=== PATIENT | female | born 1985 | race American Indian/Alaskan Native ===

== ENCOUNTER 2018-06-04 17:34 | Observation (INO) | payer MEDICAID, OTHER ==
[2018-06-04 18:24] LABS: Basophils # (Auto) 0.1 K/mm3 (0.0-0.1); Basophils % (Auto) 0.5 % (0.0-1.8); Eosinophils # (Auto) 0.1 K/mm3 (0.0-0.4); Eosinophils % (Auto) 0.6 % (0.0-4.3); Hematocrit 30.9 % (30.3-42.9); Hemoglobin 10.9 gm/dl (10.1-14.3); Lymphocytes # (Auto) 2.7 K/mm3 (1.2-5.4); Lymphocytes % (Auto) 24.2 % (13.4-35.0); Mean Corpuscular HGB Conc 35 % (30-34); Mean Corpuscular Hemoglobin 30 pg (28-32); Mean Corpuscular Volume 83 fl (79-97); Monocytes # (Auto) 0.5 K/mm3 (0.0-0.8); Monocytes % (Auto) 4.7 % (0.0-7.3); Platelet Count 323 K/mm3 (140-440); Red Cell Distribution Width 14.9 % (13.2-15.2)
[2018-06-04 18:55] LABS: Alanine Aminotransferase 26 units/L (7-56); Albumin 3.7 g/dL (3.9-5); BUN/Creatinine Ratio 28; Blood Urea Nitrogen 11 mg/dL (7-17); Calcium 9.3 mg/dL (8.4-10.2); Hemolysis Index 0
--- NOTE | 2018-06-04 23:39 | Emergency Department Report ---
ED General Adult HPI - General Chief complaint: Dizziness Stated complaint: SHORTNESS OF BREATH/DIZZINESS Time Seen by Provider: 06/04/18 21:38 Source: patient Mode of arrival: Ambulatory Limitations: No Limitations - History of Present Illness Initial comments: 2-3 months of progressive onset exertional dyspnea, difficulty breathing when she lies flat, and sometimes waking up in the middle night with difficulty breathing. The patient went to her OB, which referred her to a professional development director. She saw [facility] earlier today and was referred to the ER due to a systolic blood pressure in the 90s. Patient has no history of heart problems. She is currently 19 weeks . This is her third . The first 2 pregnancies were uneventful. No recent trips or surgeries. Denies abdominal pain or dysuria. - Related Data Previous Rx's Medication Instructions Recorded Last Taken Type Ibuprofen [Motrin] 800 mg PO Q8HR PRN #60 tablet 11/09/15 Unknown Rx Ondansetron [Zofran Odt] 4 mg PO Q6H #14 tab.rapdis 11/09/15 Unknown Rx traMADol [Ultram] 50 mg PO Q6HR PRN #14 tablet 11/09/15 Unknown Rx Allergies Allergy/AdvReac Type Severity Reaction Status Date / Time No Known Allergies Allergy Verified 06/04/18 17:44 ED Review of Systems ROS: Stated complaint: SHORTNESS OF BREATH/DIZZINESS Other details as noted in HPI Comment: All other systems reviewed and negative Respiratory: orthopnea, SOB with exertion ED Past Medical Hx - Past Medical History Previous Medical History?: No - Surgical History Past Surgical History?: Yes Additional Surgical History: c section - Social History Smoking Status: Never Smoker Substance Use Type: None - Medications Home Medications: Home Medications Medication Instructions Recorded Confirmed Last Taken Type Ibuprofen [Motrin] 800 mg PO Q8HR PRN #60 tablet 11/09/15 Unknown Rx Ondansetron [Zofran Odt] 4 mg PO Q6H #14 tab.rapdis 11/09/15 Unknown Rx traMADol [Ultram] 50 mg PO Q6HR PRN #14 tablet 11/09/15 Unknown Rx ED Physical Exam - General Limitations: No Limitations General appearance: alert, in no apparent distress - Head Head exam: Present: atraumatic, normocephalic - Eye Eye exam: Present: normal appearance - ENT ENT exam: Present: mucous membranes moist - Neck Neck exam: Present: normal inspection - Respiratory Respiratory exam: Present: normal lung sounds bilaterally. Absent: respiratory distress - Cardiovascular Cardiovascular Exam: Present: regular rate, normal rhythm, JVD. Absent: systolic murmur, diastolic murmur, rubs, gallop - GI/Abdominal GI/Abdominal exam: Present: soft, normal bowel sounds, other (gravid abdomen). Absent: tenderness - Extremities Exam Extremities exam: Present: normal inspection, pedal edema (trace bilateral pedal edema) - Back Exam Back exam: Present: normal inspection - Neurological Exam Neurological exam: Present: alert, oriented X3 - Psychiatric Psychiatric exam: Present: normal affect, normal mood - Skin Skin exam: Present: warm, dry, intact, normal color. Absent: rash ED Course Vital Signs 06/04/18 06/04/18 06/05/18 17:45 23:51 01:29 Temperature 97.8 F 98.6 F 98.6 F Pulse Rate 100 H 90 98 H Respiratory 16 18 19 Rate Blood Pressure 120/60 Blood Pressure 110/62 103/55 [Left] O2 Sat by Pulse 97 100 100 Oximetry ED Medical Decision Making - Lab Data Result diagrams: 06/04/18 18:04 06/04/18 18:04 - EKG Data -: EKG Interpreted by Me EKG shows normal: sinus rhythm, axis, intervals, QRS complexes, ST-T waves Rate: normal - EKG Data Interpretation: no acute changes - Medical Decision Making 32-year-old female approximately 19 weeks that presents to the ER with progressive onset shortness of breath. Vital signs are stable. Patient is in no respiratory distress. EKG is nonischemic. Lab work shows concerns for dehydration and hypokalemia. Patient is given IV fluids and potassium in the ER. Bedside ultrasound shows an IUP with a bouncing fetus. Patient was walked in the ER and she desatted to 86%. When she sat down to rest , her oxygen normalized. History and presentation is concerning for cardiomyopathy. Patient has JVD on exam. I ordered a d-dimer after discussion with cardiology to evaluate for PE. It came back at 750. Looking at the reference ranges for second trimester d-dimer upper normal limit is 1000. Based on history and presentation, I have low suspicion for a PE. I feel reassured by the d-dimer. I had informed discussion with the patient and she was comfortable with not getting a CT chest scan at this point time. Patient will be admitted for likely cardiology consult and an echo in the morning. - Differential Diagnosis ACS, pneumonia, cardiomyopathy, PE, pneumothorax, dehydration Critical care attestation.: If time is entered above; I have spent that time in minutes in the direct care of this critically ill patient, excluding procedure time. ED Disposition Clinical Impression: JOSÉ (dyspnea on exertion) Disposition: 09 OP ADMIT IP TO THIS HOSP Is pt being admited?: No Does the pt Need Aspirin: No Condition: Stable Referrals: PRIMARY CARE, [Primary Care Provider] - 3-5 Days
[2018-06-05] MEDS ORDERED: K-DUR PO ONE ×2 (00:12→19:30)
[2018-06-05] MEDS ORDERED: NACL 0.9% 1000 ML 1,000 ML IV ONE (00:12)
[2018-06-05] MEDS ORDERED: TYLENOL PO PRN (01:03)
[2018-06-05] MEDS ORDERED: ZOFRAN IV PRN (01:03)
[2018-06-05] MEDS ORDERED: SODIUM CHLORIDE FLUSH SYRINGE 10 ML IV PRN (01:03)
--- NOTE | 2018-06-05 01:06 | History and Physical Report ---
History of Present Illness Date of examination: 06/05/18 History of present illness: 32-year-old woman who is 19 weeks was sent to the emergency room for evaluation for shortness of breath by [facility]. She didn't complain of shortness of breath 3 months, PND and orthopnea, dyspnea on exertion and decreased exercise tolerance. Her shortness of breath is worse with activity. Also state that she feels like light headed and feel as if she is going to pass out. No edema, blood pressure in the office was 90/60 today Review of systems Constitutional: no weight loss, chills, fever Ears, eyes, nose, mouth and throat: no nasal congestion, no nasal discharge, no sinus pressure, no vision change, no red eye. Neck: No neck pain or rigidity. Cardiovascular: no chest pain, palpitations Respiratory: no cough Gastrointestinal: no abdominal pain hematochezia Genitourinary : no frequency , no hematuria Musculoskeletal: no joint swelling or muscle ache Integumentary: no rash, no pruritis Neurological: no parathesias, no numbness, no focal weakness Endocrine: no cold or heat intolerance, no polyuria or polydipsia Hematologic/Lymphatic: no easy bruising, no easy bleeding, no gland swelling Allergic/Immunologic: no urticaria, no angioedema. PAST MEDICAL HISTORY: PAST SURGICAL HISTORY: 2 SOCIAL HISTORY: Social alcohol, no drugs, tobacco FAMILY HISTORY: Hypertension Medications and Allergies Allergies Allergy/AdvReac Type Severity Reaction Status Date / Time No Known Allergies Allergy Verified 06/04/18 17:44 Home Medications Medication Instructions Recorded Confirmed Last Taken Type Folic Acid 0.4 mg PO QDAY #30 tablet 06/06/18 Unknown Rx Pnv,Calcium 72/Iron/Folic Acid 1 each PO DAILY #30 tablet 06/06/18 Unknown Rx [ Vitamin with Low Iron] Active Meds: Active Medications Sodium Chloride (Nacl 0.9% 1000 Ml) 1,000 mls @ 999 mls/hr IV BOLUS ONE Stop: 06/05/18 01:12 Last Admin: 06/05/18 00:41 Dose: 999 mls/hr Exam - Physical Exam Narrative exam: Gen. appearance: Patient lying in bed, no apparent distress HEENT: Normocephalic, atraumatic, pupils equally round and reactive to light, extraocular movement intact, and no sclericterus,. No JVD or thyromegaly or nodule,neck supple, no carotid bruit ,mucous membranes moist, no exudate or erythema Heart: S1, S2, regular rate and rhythm Lungs: Clear bilaterally, breathing comfortable Abdomen: Positive bowel sounds, non-tender, nondistended, no organomegaly Extremity:no edema cyanosis, clubbing Skin: no rash, dry, warm Neuro: Oriented 3, cranial nerves II-12 intact, speech is fluent, motor and sensory intact - Constitutional Vitals: Temp Pulse Resp BP Pulse Ox 98.6 F 90 18 110/62 100 06/04/18 23:51 06/04/18 23:51 06/04/18 23:51 06/04/18 23:51 06/04/18 23:51 Results - Labs CBC & Chem 7: 06/05/18 05:32 06/05/18 05:32 Labs: Abnormal lab results 06/04/18 06/04/18 06/04/18 Range/Units 18:04 18:04 23:01 WBC 11.1 H (4.5-11.0) K/mm3 MCHC 35 H (30-34) % Seg Neutrophils # 7.8 H (1.8-7.7) K/mm3 D-Dimer 752.35 H (0-234) ng/mlDDU Sodium 134 L (137-145) mmol/L Potassium 3.1 L (3.6-5.0) mmol/L Chloride 96.5 L (98-107) mmol/L Carbon Dioxide 21 L (22-30) mmol/L Creatinine 0.4 L (0.7-1.2) mg/dL Glucose 104 H (65-100) mg/dL Albumin 3.7 L (3.9-5) g/dL Assessment and Plan Assessment Dyspnea, evaluate for CHF Plan Admit to medicine Check cardiac enzymes, echo Consult cardiology
[2018-06-05 02:07] LABS: Creatine Kinase MB < 1.0 ng/mL (0.0-4.0)
[2018-06-05 06:48] LABS: Basophils % (Auto) 0.3 % (0.0-1.8); Eosinophils # (Auto) 0.1 K/mm3 (0.0-0.4); Eosinophils % (Auto) 0.8 % (0.0-4.3); Hemoglobin 9.4 gm/dl (10.1-14.3); Lymphocytes # (Auto) 2.1 K/mm3 (1.2-5.4); Lymphocytes % (Auto) 23.5 % (13.4-35.0); Mean Corpuscular HGB Conc 34 % (30-34); Mean Corpuscular Hemoglobin 28 pg (28-32); Mean Corpuscular Volume 84 fl (79-97); Monocytes # (Auto) 0.7 K/mm3 (0.0-0.8); Monocytes % (Auto) 7.7 % (0.0-7.3); Platelet Count 292 K/mm3 (140-440); Red Blood Count 3.34 M/mm3 (3.65-5.03); Red Cell Distribution Width 15.1 % (13.2-15.2)
[2018-06-05 07:09] LABS: BUN/Creatinine Ratio 27; Blood Urea Nitrogen 8 mg/dL (7-17); Calcium 8.5 mg/dL (8.4-10.2); Hemolysis Index 1
[2018-06-05 07:23] LABS: Creatine Kinase MB < 1.0 ng/mL (0.0-4.0)
--- NOTE | 2018-06-05 10:16 | Progress Note ---
Assessment and Plan 32-year-old woman who is 19 weeks was sent to the emergency room for evaluation for shortness of breath by [facility]. She didn't complain of shortness of breath 3 months, PND and orthopnea, dyspnea on exertion and decreased exercise tolerance. Her shortness of breath is worse with activity. Also state that she feels like light headed and feel as if she is going to pass out. No edema, blood pressure in the office was 90/60 today - Shortness of breath and dizziness in a 19 week female Cardiology input appreciated ECG - normal Troponin - negative x 2 Echo - normal LVEF, normal RV function - Hyperkalemia Supplement and check Mg level - Hyperemesis antiemetic with Zofran - Anemia dilutional disposition: d/c home to f/u [facility] OB if sx improved Subjective Date of service: 06/05/18 Principal diagnosis: shortness of breath Interval history: Patient seen and examined. No new complaints. Shortness of breath improved. She is 19 weeks . Objective - Exam Narrative Exam: Constitutional: Well-nourished well-developed. In no distress Head: Normocephalic atraumatic Eyes: Pupils are equal round and reactive to light Nose: No enlarged turbinates, no septal deviation. Mouth: Moist mucous membranes. Neck: Supple no thyromegaly. No bruit. No JVD Heart: Regular rate and rhythm, S1-S2 abnormal. No rubs murmurs or gallop Lungs: Clear to auscultation bilaterally no rales or rhonchi Abdomen: Soft, nontender. Bowel sound are present. Extremities: No edema no cyanosis and no clubbing. Neuro: Alert oriented Oriented x3. No focal sensory or motor deficit. Skin: No rashes no hyperemic spots Psychiatry: Euthymic. Calm. - Constitutional Vitals: Vital Signs - 12hr 06/04/18 06/05/18 06/05/18 23:51 01:29 02:23 Temperature 98.6 F 98.6 F Pulse Rate 90 98 H 98 H Pulse Rate [ Apical] Respiratory 18 19 Rate Blood Pressure Blood Pressure 110/62 103/55 [Left] O2 Sat by Pulse 100 100 Oximetry 06/05/18 06/05/18 06/05/18 02:58 05:24 08:17 Temperature 98.6 F 98.7 F Pulse Rate 88 90 86 Pulse Rate [ Apical] Respiratory 18 18 16 Rate Blood Pressure 100/59 89/42 85/50 Blood Pressure [Left] O2 Sat by Pulse 99 97 100 Oximetry 06/05/18 09:28 Temperature Pulse Rate Pulse Rate [ 80 Apical] Respiratory 20 Rate Blood Pressure Blood Pressure [Left] O2 Sat by Pulse 100 Oximetry - Labs CBC & Chem 7: 06/05/18 05:32 06/05/18 05:32 Labs: Abnormal lab results 06/04/18 06/04/18 06/04/18 Range/Units 18:04 18:04 23:01 WBC 11.1 H (4.5-11.0) K/mm3 RBC (3.65-5.03) M/mm3 Hgb (10.1-14.3) gm/dl Hct (30.3-42.9) % MCHC 35 H (30-34) % Day % (Auto) (0.0-7.3) % Seg Neutrophils # 7.8 H (1.8-7.7) K/mm3 D-Dimer 752.35 H (0-234) ng/mlDDU Sodium 134 L (137-145) mmol/L Potassium 3.1 L (3.6-5.0) mmol/L Chloride 96.5 L (98-107) mmol/L Carbon Dioxide 21 L (22-30) mmol/L Creatinine 0.4 L (0.7-1.2) mg/dL Glucose 104 H (65-100) mg/dL Albumin 3.7 L (3.9-5) g/dL 06/05/18 06/05/18 Range/Units 05:32 05:32 WBC (4.5-11.0) K/mm3 RBC 3.34 L (3.65-5.03) M/mm3 Hgb 9.4 L (10.1-14.3) gm/dl Hct 28.0 L (30.3-42.9) % MCHC (30-34) % Day % (Auto) 7.7 H (0.0-7.3) % Seg Neutrophils # (1.8-7.7) K/mm3 D-Dimer (0-234) ng/mlDDU Sodium (137-145) mmol/L Potassium 3.5 L (3.6-5.0) mmol/L Chloride (98-107) mmol/L Carbon Dioxide 20 L (22-30) mmol/L Creatinine 0.3 L (0.7-1.2) mg/dL Glucose (65-100) mg/dL Albumin (3.9-5) g/dL
--- NOTE | 2018-06-05 10:52 | Consultation ---
History of Present Illness Consult date: 06/05/18 Consult reason: known to you, shortness of breath History of present illness: This is a 32 year old woman whom is 19 weeks . She was sent from our office with shortness of breath, dizziness and hypotension and admitted for suspected volume depletion. Cardiac consultation was requested. Patient reports continued shortness of breath with minimal exertion. She denies dizziness. She denies chest pain and palpitations. Blood pressure is borderline low. A 12 lead ECG is a normal sinus rhythm. Medications and Allergies Allergies Allergy/AdvReac Type Severity Reaction Status Date / Time No Known Allergies Allergy Verified 06/04/18 17:44 Home Medications Medication Instructions Recorded Confirmed Last Taken Type Ibuprofen [Motrin] 800 mg PO Q8HR PRN #60 tablet 11/09/15 Unknown Rx Ondansetron [Zofran Odt] 4 mg PO Q6H #14 tab.rapdis 11/09/15 Unknown Rx traMADol [Ultram] 50 mg PO Q6HR PRN #14 tablet 11/09/15 Unknown Rx Active Meds: Active Medications Acetaminophen (Tylenol) 650 mg PO Q4H PRN PRN Reason: Pain MILD(1-3)/Fever >100.5/VICTOR Enoxaparin Sodium (Lovenox) 40 mg SUB-Q QDAY JULIAN Ondansetron HCl (Zofran) 4 mg IV Q8H PRN PRN Reason: Nausea And Vomiting Sodium Chloride (Sodium Chloride Flush Syringe 10 Ml) 10 ml IV BID JULIAN Sodium Chloride (Sodium Chloride Flush Syringe 10 Ml) 10 ml IV PRN PRN PRN Reason: LINE FLUSH Physical Examination Vital Signs Temp Pulse Resp BP Pulse Ox 97.8 F 100 H 16 120/60 97 06/04/18 17:45 06/04/18 17:45 06/04/18 17:45 06/04/18 17:45 06/04/18 17:45 General appearance: no acute distress HEENT: Positive: PERRL Cardiac: Positive: Reg Rate and Rhythm Lungs: Positive: Normal Breath Sounds Neuro: Positive: Grossly Intact Results 06/05/18 05:32 06/05/18 05:32 Cardiac Enzymes 06/04/18 06/05/18 06/05/18 Range/Units 18:04 01:28 05:32 AST 28 (5-40) units/L CK-MB (CK-2) < 1.0 < 1.0 (0.0-4.0) ng/mL CBC 06/04/18 06/05/18 Range/Units 18:04 05:32 WBC 11.1 H 8.9 (4.5-11.0) K/mm3 RBC 3.70 3.34 L (3.65-5.03) M/mm3 Hgb 10.9 9.4 L (10.1-14.3) gm/dl Hct 30.9 28.0 L (30.3-42.9) % Plt Count 323 292 (140-440) K/mm3 Lymph # 2.7 2.1 (1.2-5.4) K/mm3 [place] # 0.5 0.7 (0.0-0.8) K/mm3 Eos # 0.1 0.1 (0.0-0.4) K/mm3 Baso # 0.1 0.0 (0.0-0.1) K/mm3 Comprehensive Metabolic Panel 06/04/18 06/05/18 Range/Units 18:04 05:32 Sodium 134 L 139 (137-145) mmol/L Potassium 3.1 L 3.5 L (3.6-5.0) mmol/L Chloride 96.5 L 106.7 (98-107) mmol/L Carbon Dioxide 21 L 20 L (22-30) mmol/L BUN 11 8 (7-17) mg/dL Creatinine 0.4 L 0.3 L (0.7-1.2) mg/dL Glucose 104 H 80 (65-100) mg/dL Calcium 9.3 8.5 (8.4-10.2) mg/dL AST 28 (5-40) units/L ALT 26 (7-56) units/L Alkaline Phosphatase 75 (35-129) units/L Total Protein 7.1 (6.3-8.2) g/dL Albumin 3.7 L (3.9-5) g/dL Assessment and Plan Shortness of breath Dizziness 19 weeks gestation Echocardiogram for LVEF assessment.
[2018-06-05] MEDS ORDERED: NACL 0.9% 1000 ML 1,000 ML IV SCH (13:00)
[2018-06-05] MEDS: LOVENOX SUB-Q SCH (14:07)
[2018-06-05] MEDS: SODIUM CHLORIDE FLUSH SYRINGE 10 ML IV SCH ×2 (14:17→21:11)
--- NOTE | 2018-06-05 17:48 | Event Note ---
Date: 06/05/18 Visit patient patient states she feels better. Her Chart Reviewed. It Appears That the Patient Has Been Cleared by Cardiology with the Recommendation to Replenish Her Potassium and Hydration and Follow up As Outpatient. Patient Has Appointment with the Perinatologist Scheduled for June 08 and Appointment in Office on June 09. Patient encouraged to keep scheduled appointments and call if she needs anything from an OB standpoint.
--- NOTE | 2018-06-06 08:50 | Progress Note ---
Assessment and Plan 1. Hyperemesis 2. Twenty weeks gestation 3. Hypokalemia Plan. Hypokalemia is being corrected patient responded to IV hydration level ventricular size and function normal. Management as per the PCP Subjective Date of service: 06/06/18 Principal diagnosis: shortness of breath Interval history: No cardiac symptoms Objective Vital Signs Temp Pulse Pulse Resp BP BP Pulse Ox 06/06/18 08:25 95 06/06/18 05:37 98.9 F 83 18 102/56 98 06/06/18 02:00 95 H 06/06/18 00:57 98.9 F 92 H 18 110/67 98 06/05/18 23:45 90 110/67 100 06/05/18 22:00 18 06/05/18 21:54 98 06/05/18 20:24 98 F 93 H 20 105/59 98 06/05/18 16:54 98.2 F 93 H 18 92/49 99 06/05/18 12:21 97.9 F 91 H 14 95/42 99 06/05/18 10:00 90 99 06/05/18 09:28 80 20 100 - Physical Examination General: Appears Well, No Apparent Distress HEENT: Positive: PERRL Neck: Cardiac: Lungs: Neuro: Positive: Grossly Intact Abdomen: /Rectal: Normal Prostate, No Masses Skin: Musculoskeletal: No Fluid Collection, No Pain, Normal Range of Motion Gait: Normal Gait Extremities:
[2018-06-06] MEDS: LOVENOX SUB-Q SCH (10:00)
--- NOTE | 2018-06-06 10:18 | Discharge Summary ---
Providers - Providers Date of Admission: 06/05/18 01:03 Date of discharge: 06/06/18 Attending physician: MARYLIN ROY 06/04/18 23:46 Consult to Cardiology [CONS] Routine Consulting Provider: NEHA HERNANDEZ Reason For Exam: dyspnea Primary care physician: [employer] SAL[employer] MANAGER Hospitalization Reason for admission: fatigue and dizziness Condition: Stable Pertinent studies: Echocardiogram with normal ejection fraction of 60% Procedures: None Hospital course: 32-year-old woman who is 19 weeks was sent to the emergency room for evaluation for shortness of breath by [facility]. She didn't complain of shortness of breath 3 months, PND and orthopnea, dyspnea on exertion and decreased exercise tolerance. Her shortness of breath is worse with activity. Also state that she feels like light headed and feel as if she is going to pass out. No edema, blood pressure in the office was 90/60 today. Echocardiogram was done. Ejection fraction was 60%. Patient was commenced on IV hydration. Blood pressure improved. Shortness of breath and fatigue improved. She is to be discharged to follow up with OB appointment. And primary care doctor Disposition: DC-01 TO HOME OR SELFCARE Time spent for discharge: 36 minutes - Discharge Diagnoses (1) JOSÉ (dyspnea on exertion) Status: Acute Core Measure Documentation - Palliative Care Palliative Care/ Comfort Measures: Not Applicable - Core Measures Any of the following diagnoses?: none Exam - Physical Exam Narrative exam: Constitutional: Well-nourished well-developed. In no distress Head: Normocephalic atraumatic Eyes: Pupils are equal round and reactive to light Nose: No enlarged turbinates, no septal deviation. Mouth: Moist mucous membranes. Neck: Supple no thyromegaly. No bruit. No JVD Heart: Regular rate and rhythm, S1-S2 abnormal. No rubs murmurs or gallop Lungs: Clear to auscultation bilaterally no rales or rhonchi Abdomen: Soft, nontender. Bowel sound are present. 19 weeks fundus size Extremities: No edema no cyanosis and no clubbing. Neuro: Alert oriented Oriented x3. No focal sensory or motor deficit. Skin: No rashes no hyperemic spots Psychiatry: Euthymic. Calm. - Constitutional Vitals: Temp Pulse Resp BP Pulse Ox 98.9 F 83 18 102/56 95 06/06/18 05:37 06/06/18 05:37 06/06/18 05:37 06/06/18 05:37 06/06/18 08:25 Plan Activity: fall precautions Weight Bearing Status: Weight Bear as Tolerated Diet: regular Follow up with: PRIMARY CARE, [Primary Care Provider] - 3-5 Days Prescriptions: Folic Acid 0.4 mg PO QDAY #30 tablet Pnv,Calcium 72/Iron/Folic Acid [ Vitamin with Low Iron] 1 each PO DAILY #30 tablet
[2018-06-06] MEDS: SODIUM CHLORIDE FLUSH SYRINGE 10 ML IV SCH (10:30)
[2018-06-06 10:42] VITALS: BP 102/62
== END 2018-06-06 13:33 | disposition home or self-care (01) ==
LOC: ED 17:34 → 4A 06-05 01:03 → INTOOBSV 06-05 01:03
PROVIDERS: ADMIT Internal Medicine; ATTEND Family Medicine
DX: O26.892 Other specified pregnancy related conditions, second trimester (principal); R06.02 Shortness of breath; R03.1 Nonspecific low blood-pressure reading; O21.0 Mild hyperemesis gravidarum; O99.012 Anemia complicating pregnancy, second trimester; D64.9 Anemia, unspecified; O99.282 Endocrine, nutritional and metabolic diseases complicating pregnancy, second trimester; E87.6 Hypokalemia; Z3A.19 19 weeks gestation of pregnancy
CPT/HCPCS: 36415; 80048; 80053; 82550; 82553; 83880; 84484; 84703; 85025; 85379; 93005; 93010; 93306; 96361; 96372; 96374; 99285; G0378; J1650; J2405; J7030

== ENCOUNTER 2018-07-14 11:33 | Outpatient (CLI) | payer MEDICAID ==
[2018-07-14] MEDS ORDERED: LACTATED RINGERS 1,000 ML ONE (11:50)
[2018-07-14] MEDS ORDERED: LACTATED RINGERS 500 ML IV ONE (12:20)
[2018-07-14 12:43] LABS: Hematocrit 33.7 % (30.3-42.9); Hemoglobin 11.2 gm/dl (10.1-14.3); Mean Corpuscular HGB Conc 33 % (30-34); Mean Corpuscular Hemoglobin 28 pg (28-32); Mean Corpuscular Volume 84 fl (79-97); Platelet Count 392 K/mm3 (140-440); Red Cell Distribution Width 14.4 % (13.2-15.2)
[2018-07-14 13:29] LABS: Bacteria,Urine 3+ /HPF (Negative); Bilirubin,Urine NEG (Negative); Blood,Urine SM (Negative); Color,Urine Yellow (Yellow); Mucus,Urine FEW /HPF; Protein,Urine <15 mg/dL mg/dL (Negative); Urobilinogen,Urine < 2.0 mg/dL (<2.0)
[2018-07-14 13:40] LABS: Basophils % (Manual) 0 % (0.0-1.8); Eosinophils % (Manual) 0 % (0.0-4.3); Total Cells Counted 100
[2018-07-14 13:41] LABS: Anisocytosis 1+; Ovalocytes 1+; Platelet Estimate Consistent w Auto
[2018-07-14 14:16] VITALS: BP 110/64
== END 2018-07-14 15:36 | disposition home or self-care (01) ==
LOC: TRG 11:33
PROVIDERS: ATTEND Obstetrics & Gynecology
DX: O47.02 False labor before 37 completed weeks of gestation, second trimester (principal); Z3A.25 25 weeks gestation of pregnancy
CPT/HCPCS: 36415; 59025; 81001; 82962; 85007; 85025; 96372; J7120

== ENCOUNTER 2018-07-14 15:49 | Emergency (ER) | payer MEDICAID ==
[2018-07-14] MEDS ORDERED: NACL 0.9% 1000 ML 1,000 ML IV ONE (21:08)
--- NOTE | 2018-07-14 21:41 | Emergency Department Report ---
HPI - General Chief Complaint: Dizziness Time Seen by Provider: 07/14/18 20:46 - HPI HPI: 32-year-old female presents to the emergency department with a complaint of some dizziness and a few episodes of passing out. Patient is currently about 25 weeks . She went to see her SYSTEMS TEST ENGINEER for a glucose tolerance test and shortly after this she got very dizzy and passed out. Sent over to L&D where the was evaluated but then she was sent to the emergency department for further evaluation. Patient has had a few episodes of passing out and was even admitted to the hospital for one of these episodes a few weeks ago. At that time she saw a clinic of her cardiology and she has had a echocardiogram, Holter monitor and no etiology of her symptoms have been found everything resulted as normal. She goes to [facility]. She does not have a primary care physician. She otherwise has no past medical history. ED Past Medical Hx - Past Medical History Hx Hypertension: No Hx Congestive Heart Failure: No Hx Diabetes: No Hx Deep Vein Thrombosis: No Hx Renal Disease: No Hx Sickle Cell Disease: No Hx Seizures: No Hx Asthma: No Hx COPD: No Hx HIV: No - Surgical History Additional Surgical History: c section - Social History Smoking Status: Never Smoker Substance Use Type: None - Medications Home Medications: Home Medications Medication Instructions Recorded Confirmed Last Taken Type Folic Acid 0.4 mg PO QDAY #30 tablet 06/06/18 07/14/18 Unknown Rx Pnv,Calcium 72/Iron/Folic Acid 1 each PO DAILY #30 tablet 06/06/18 07/14/18 Unknown Rx [ Vitamin with Low Iron] ED Review of Systems ROS: Stated complaint: DIZZY/LIGHTHEADED Other details as noted in HPI Comment: All other systems reviewed and negative Constitutional: denies: chills, fever Eyes: denies: eye pain, eye discharge, vision change ENT: denies: ear pain, throat pain Respiratory: SOB with exertion. denies: cough Cardiovascular: syncope. denies: chest pain Gastrointestinal: denies: abdominal pain, nausea, diarrhea Genitourinary: denies: urgency, dysuria, discharge Musculoskeletal: denies: back pain, joint swelling, arthralgia Skin: denies: rash, lesions Neurological: other (dizziness). denies: headache Physical Exam - Physical Exam Vital Signs: Vital Signs 07/14/18 07/14/18 15:55 20:54 Temperature 98.9 F Pulse Rate 99 H Respiratory 16 18 Rate Blood Pressure 121/62 O2 Sat by Pulse 100 Oximetry Physical Exam: GENERAL: The patient is well-developed well-nourished. HENT: Normocephalic. Atraumatic. Patient has moist mucous membranes. EYES: Extraocular motions are intact. Pupils equal reactive to light bilaterally. No nystagmus. NECK: Supple. Trachea is midline. CHEST/LUNGS: Clear to auscultation. There is no respiratory distress noted. HEART/CARDIOVASCULAR: Regular. There is no tachycardia. There is no murmur. ABDOMEN: Abdomen is soft, nontender. Patient has normal bowel sounds. Gravid uterus is palpable just above the umbilicus. SKIN: Skin is warm and dry. NEURO: The patient is awake, alert, and oriented. The patient is cooperative. The patient has no focal neurologic deficits. The patient has normal speech. Cranial nerves II through XII grossly intact. No pronator drift. No dysmetria. MUSCULOSKELETAL: There is no tenderness or deformity. There is no limitation range of motion. There is no evidence of acute injury. ED Course Vital Signs 07/14/18 07/14/18 15:55 20:54 Temperature 98.9 F Pulse Rate 99 H Respiratory 16 18 Rate Blood Pressure 121/62 O2 Sat by Pulse 100 Oximetry ED Medical Decision Making - Lab Data Result diagrams: 07/14/18 21:19 - EKG Data -: EKG Interpreted by Me EKG shows normal: sinus rhythm, axis, intervals, QRS complexes, ST-T waves Rate: normal - EKG Data When compared to previous EKG there are: previous EKG unavailable Interpretation: normal EKG - Radiology Data Radiology results: image reviewed interpreted by me: Chest x-ray does not show any acute process. There are no pleural effusions, obvious pneumonia and there is no pneumothorax. - Medical Decision Making This patient was getting her glucose tolerance test for her when she had a near syncopal episode. She was evaluated by the SYSTEMS TEST ENGINEER service but then sent to the emergency department for further evaluation. She had a previous CBC today and urinalysis that did not show any significant abnormalities. In the emergency Department I obtained a metabolic panel and a thyroid level that also came back in the normal ranges. EKG was normal without ST elevation IN, ischemia or dysrhythmia. She had a 1 view chest x-ray with her abdomen shielded and it did not show any signs of any pneumothorax, pneumonia, pleural effusions or focal consolidations. Vital signs are stable throughout her ED course. The patient has had an extensive cardiology workup for these recent dizzy spells. I spoke to the SYSTEMS TEST ENGINEER service who agrees with the plan for discharge home to follow up with both themselves and cardiology. The patient says that she is currently feeling well and ready for discharge home. She has been instructed to return to the emergency department with any further episodes of passing out, worsening of her symptoms, or any acute distress. - Differential Diagnosis hypothyroid, dysrhythmia, electrolyte abnormalities, Critical Care Time: No Critical care attestation.: If time is entered above; I have spent that time in minutes in the direct care of this critically ill patient, excluding procedure time. ED Disposition Clinical Impression: Dizziness, Near syncope Qualifiers: Weeks of gestation: 25 weeks Qualified Code(s): Z3A.25 - 25 weeks gestation of Disposition: DC-01 TO HOME OR SELFCARE Is pt being admited?: No Condition: Stable Instructions: (ED), Near Syncope (ED), Lightheadedness (ED), Dizziness (ED) Additional Instructions: Please follow-up with your SYSTEMS TEST ENGINEER and cardiology physicians. Return to the emergency Department with any worsening of her symptoms or any acute distress. Referrals: PRIMARY CARE [Primary Care Provider] - 3-5 Days [facility] [Provider Group] - 3-5 Days [facility] [Provider Group] - 3-5 Days Time of Disposition: 00:35
[2018-07-14 21:48] LABS: Alanine Aminotransferase 15 units/L (7-56); Albumin 3.4 g/dL (3.9-5); BUN/Creatinine Ratio 14; Blood Urea Nitrogen 7 mg/dL (7-17); Hemolysis Index 0
--- NOTE | 2018-07-14 23:29 | XRay Report ---
FINAL REPORT PROCEDURE: XR CHEST 1V AP TECHNIQUE: Chest radiograph anteroposterior view. CPT 72402 HISTORY: SOB COMPARISON: No prior studies are available for comparison. FINDINGS: Heart: Normal. Mediastinum/Vessels: Normal. Lungs/Pleural space: The lungs are clear there are no infiltrates, effusions or pneumothoraces. Bony thorax: No acute osseous abnormality. Life support devices: None. IMPRESSION: No acute cardiopulmonary abnormality.
[2018-07-15 00:42] VITALS: BP 105/61
== END 2018-07-15 00:42 | disposition home or self-care (01) ==
LOC: ED 15:49
DX: O26.893 Other specified pregnancy related conditions, third trimester (principal); R42 Dizziness and giddiness; R55 Syncope and collapse; Z79.899 Other long term (current) drug therapy; Z3A.25 25 weeks gestation of pregnancy
CPT/HCPCS: 36415; 71045; 80053; 84443; 84484; 93005; 93010